=== PATIENT | male | born 1950 | race Caucasian/White ===

== ENCOUNTER 2024-08-06 06:01 | Day surgery (SDC) | payer MEDICARE, OTHER, SELFPAY ==
[2024-08-04 10:36] VITALS: BMI 22.3
[2024-08-06] VITALS (17 sets, daily range): BP systolic 110–145; BP diastolic 73–105; BMI 22.1
[2024-08-06 06:46] LABS: Glucose - Point of Care 97 mg/dl (70-99)
[2024-08-06 09:19] LABS: ACT-LR - POC 331 Seconds (116-155)
[2024-08-06 09:56] LABS: ACT-LR - POC 308 Seconds (116-155)
[2024-08-06 10:20] LABS: ACT-LR - POC 153 Seconds (116-155)
--- NOTE | 2024-08-06 10:55 | ITS.CL.ABL ---
Energy Technician - Ablation
Ablation
Procedure Report:
Primary Physician: Albaro Guerra MD
Primary Assistant Public Defender: Deon Juarez MD
Procedure Date: 08/06/2024
Procedure
Electrophysiology Study with SVT ablation
Left atrial recording / pacing
IV drug for arrhythmia induction
Patient History
Patient is a pleasant 74-year-old male with a past medical history significant for CVA, prostate cancer, nonadherence to medications, hypertension, esophageal cancer status postresection, alcohol use disorder, and paroxysmal symptomatic SVT.
Patient noted with evidence of SVT on ECG as well as event monitor with variable cycle length between 120 and 150 bpm. Intermittently, SVT is narrow complex likely short RP tachycardia other times it is faster with right bundle branch aberrancy and
unclear RP relationship. Patient tolerating beta-sarina with breakthrough symptomatic SVT.
Method
After informed consent was obtained, the patient was brought to the EP lab in a post-absorptive, non-sedated state. A peripheral IV was in place. Continuous electrocardiography, blood pressure and pulse oximetry monitoring was initiated and
cardioversion / defibrillator electrodes were positioned on the chest in an AP orientation. A 'time-out' was called. Conscious sedation was administered with the assistance of the anesthesia services, and local anesthesia was given at the femoral
vein access sites.
Using modified Seldinger technique, vascular access was achieved and sheaths were placed. Multipolar catheters were advanced to the coronary sinus, His bundle recording position, right ventricle, and high right atrium. Following the determination
of baseline conduction intervals, comprehensive EP study was performed. Pacing and recording from the RA, RV, HBE, and CS / LA was performed.
For arrhythmia details, see below.
Fluoroscopy time:
15.3 min; 41.21 mGy; DAP 4.4
Total RF time:
3 min 52s
Estimated Blood Loss
5 mL
Complications
None
At the end of the procedure, all catheters and sheaths were removed and hemostasis was assured with figure of 8 sutures and manual pressure. Protamine used for reversal. The patient was returned to the recovery area in stable condition.
Access Sites:
Left Femoral Vein: 2 sheaths (7 Fr, 6 Fr)
Right Femoral Vein: 2 sheaths (9 Fr upsized to 11.5 Fr, 6 Fr)
Baseline Intervals:
DE: 189 ms
AH: 74 ms
HV: 54 ms
QRS: 150 ms
QT: 417 ms
QTc: 487 ms
A-A: 735 ms
R-R: 735 ms
Post-Procedure Intervals:
DE: 120 ms
AH: 63 ms
HV: 54 ms
QRS: 148 ms
QT: 449 ms
QTc: 518 ms
A-A: 755 ms
R-R: 755 ms
AV Conduction:
- AVWB at 370 msec; unchanged pre/post
- VAWB at 360 msec; unchanged pre/post
Refractory Periods
- AERP 600/310 ms (600/240 ms on Isuprel)
Procedure Synopsis:
The patient entered the room in sinus rhythm. Following induction of anesthesia, access was obtained as noted above. Catheters were placed in the RV apex, HIS position, and coronary sinus. Baseline measurements were taken in sinus rhythm. Next,
thresholds were performed demonstrating adequate capture. Next, AV/VA Wenckebach was performed demonstrating appropriate AV/VA conduction. Para-Hisian pacing demonstrated a iván response. Atrial extrastimuli was then performed with drivetrain of
600 reducing S2 by tens. Patient was noted to have an AH jump during atrial extrastimuli. At 600/330 ms, clinical arrhythmia/SVT was induced at 620 ms. Arrhythmia was a on V phenomenon with VA time less than 30. With ventricular overdrive
pacing, patient demonstrated a VAV response. PPI minus TCL was noted to be greater than 115 ms and SA�VA was greater than 85 ms. 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 Short 9 [place] sheath was exchanged for an
11.5 [place] steerable sheath. Heparin was given for ACT goal 300�400. HD grid catheter was advanced in the right atrium and right atrial mapping was performed in sinus rhythm. During this time, patient was noted to experience similar clinical
arrhythmia/SVT now at 400 ms with same pacing maneuvers demonstrating typical slow fast AVNRT. Arrhythmia was terminated and mapping continued in sinus rhythm. Detail points were made demonstrating area of slow pathway region, anatomy, and HIS
bundle/cloud signals. Following thorough electroanatomic mapping, HD grid catheter was removed and TactiCath SE DF catheter was advanced in the right atrium. Irrigation was placed in a low flow state. Ablation catheter once more mapped regions of
the HIS and areas were marked demonstrating HIS signal. Ablation was performed in areas where HIS signal was not present on ablation catheter EGM, A:V ratio 1:3-1:10 in the region marked as slow pathway by electroanatomic mapping. Careful
monitoring of AV synchrony, junctional rhythm, impedance, temperature, power during ablation. Patient maintained AV synchrony during the entirety of ablation. During ablation, stable junctional beats were noted without loss of AV conduction.
Following completion of ablation lesions, reinduction was attempted. With atrial extrastimuli, patient was noted to no longer possess an AH jump. Additionally, no SVT/clinical arrhythmia was induced during these attempts. Isoproterenol drug
infusion was then performed and measurements/electrophysiology study was once more performed with arrhythmia induction attempt. No arrhythmia was induced during drug infusion or afterwards. Baseline measurements were once more performed
demonstrating no change in AV conduction. Catheters and sheaths were removed and hemostasis assured as noted above.
Recommendations
- Admit to telemetry
- Bedrest with straight-leg precautions 4 hours
- Continue home medications as indicated
- Follow-up in office with Dr Juarez as scheduled
Samir Johnson DO
Clinical Cardiac Electrophysiology
cc: Albaro Guerra MD; Deon Juarez MD
[2024-08-06 11:29] LABS: Glucose - Point of Care 133 mg/dl (70-99)
--- NOTE | 2024-08-06 13:05 | CM ---
Reviewed chart. Met with Mr. Marin to review discharge plans. He states prior to admission he resides with his spouse in a two story home with two steps to enter. He states he has thirteen steps to get to bedroom. He states his full bathroom is on
the first floor. He states prior to admission he was independent with ambulation and adls. He states he has a CPAP Machine at home that he is not currently using it. He states he has a prescription plan and uses [facility]. He states his spouse
will be going away for the weekend and he maybe going to stay with his daughter in [place] while she is away. The discharge plan is to return home with his spouse when medically stable.
--- NOTE | 2024-08-06 15:50 | PTCARENOTE ---
Pt received post procedure at 1215. Bilateral groin site dressings dry and intact. Denies any pain or discomfort. Room air sat 98. Assisted oob to the bathroom when bedrest completed. Gait steady with a walker. Walked in the hallway with nurse. No
c/o offered.
[2024-08-06] MEDS: TOPROL XL 25 MG PO (19:34)
--- NOTE | 2024-08-07 01:48 | PTCARENOTE ---
Pt received start of shift, HR SR w/ BBB. B/l groin sites CDI, soft - no hematomas. Pt ambulated with standby assist around floor once. Pt tolerated well, groin sites remain unchanged. Pt w/ episode of intermittent vomiting w/ small output each time
for 10-15mins. Pt denies nausea and states this sometimes happens if he eats too much after his esophageal CA/resection and that walking helps. Pt walked around unit again - pt tolerated. Educated pt on aspiration pneumonia and possible risks. Pt
states understanding. Informed to notify RN if any recurrence of vomiting, call vaughn within reach.
[2024-08-07 02:50] VITALS: BP 137/84
[2024-08-07 03:12] LABS: Hematocrit 37.2 % (39.0-52.0); Mean Corp Hgb Conc. 34.9 g/dL (33.0-37.0); Mean Corpuscular Hgb 33.5 pg (27.0-31.0); Mean Corpuscular Volume 95.9 fL (80.0-94.0); Mean Platelet Volume 8.9 fL (7.4-10.4); Platelet Count 144 10^3/uL (130-400); Red Blood Cell Count 3.88 10^6/uL (4.70-6.10); Red Cell Dist. Width 15.5 % (11.5-14.5); White Blood Cell Count 3.7 10^3/uL (4.8-10.8)
[2024-08-07 03:17] VITALS: BMI 22.4
[2024-08-07 03:34] LABS: Blood Urea Nitrogen 19 mg/dl (9-20); Calcium 9.3 mg/dl (8.4-10.2); Carbon Dioxide 23 mmol/L (22-30); Chloride 105 mmol/L (98-107); Estimated Creatinine Clearance 83 ml/min; Glucose 115 mg/dl (70-99); Magnesium 1.9 mg/dl (1.6-2.3); Potassium 4.2 mmol/L (3.5-5.1); Sodium 141 mmol/L (135-145); eGFR > 60.00
[2024-08-07] MEDS: MAALOX 30 ML PO (05:39)
[2024-08-07] MEDS: TUMS EX (EXTRA STRENGTH) CHEWABLE TABLET 300 MG PO (06:07)
--- NOTE | 2024-08-07 06:13 | PTCARENOTE ---
Pt c/o indigestion. PRN Maalox administered. Approximately 10 minutes later, pt w/ light emesis and wet cough. Pt requesting tums, DEVONTE [place] notified. Tums administered to pt.
[2024-08-07 07:00] VITALS: BP 127/82
--- NOTE | 2024-08-07 07:27 | W.PN.CARDCBS ---
Addendum entered and electronically signed by Denis Story MD 08/07/24 09:50:
patient seen and examined
agree with STUDENT ACCOUNTS MANAGER note and assessment
agree with STUDENT ACCOUNTS MANAGER plan
exam:
aao x 3
non focal neurologically
exam as per STUDENT ACCOUNTS MANAGER note
tele SR
Impression:
SVT
post SVT ablation 08/06/24
CVA 03/31/2020, right hemispheric, with residual deficits.
Obstructive sleep apnea, noncompliant with device.
Borderline diabetes.
Daily alcohol.
Esophageal cancer 2017 status post resection, chemo and radiation.
Prostate cancer less than five years status post radiation.
Plan:
post ablation feels well
groins stable
tele SR RBBB
continue metoprolol
Activity restrictions reviewed
f/u Dr. Juarez in 3 mo
stable for d/c home
Original Note:
Today's Communication / Plan
-
stable for d/c home
Impression / Plan
-
PCP: Albaro Guerra MD
CDY: Luca Juarez MD
Impression:
SVT
post SVT ablation 08/06/24
CVA 03/31/2020, right hemispheric, with residual deficits.
Obstructive sleep apnea, noncompliant with device.
Borderline diabetes.
Daily alcohol.
Esophageal cancer 2017 status post resection, chemo and radiation.
Prostate cancer less than five years status post radiation.
Plan:
post ablation feels well
groins stable
tele SR RBBB
continue metoprolol
Activity restrictions reviewed
f/u Dr. Juarez in 3 mo
stable for d/c home
Progress Note - Help Desk Representative
Subjective
Date of Service: August 07, 2024
denies cp, sob
Objective
Labs:
08/07/24 02:56
08/07/24 02:56
Labs
Hgb 13.0 g/dL (13.0-18.0) 08/07/24 02:56
Hct 37.2 % (39.0-52.0) L 08/07/24 02:56
Plt Count 144 10^3/uL (130-400) D 08/07/24 02:56
Sodium 141 mmol/L (135-145) 08/07/24 02:56
Potassium 4.2 mmol/L (3.5-5.1) 08/07/24 02:56
BUN 19 mg/dl (9-20) 08/07/24 02:56
Creatinine 0.7 mg/dL (0.7-1.3) 08/07/24 02:56
Glucose 115 mg/dl (70-99) H 08/07/24 02:56
Vital Signs and I&O:
Vital Signs
Temp Pulse Resp BP Pulse Ox
97.9 F 66 16 137/84 96
08/07/24 02:39 08/07/24 07:00 08/07/24 02:39 08/07/24 02:50 08/07/24 02:39
Vital Signs
Temp Pulse Resp BP Pulse Ox
97.9 F 66 16 137/84 96
08/07/24 02:39 08/07/24 07:00 08/07/24 02:39 08/07/24 02:50 08/07/24 02:39
Intake & Output
08/05/24 08/06/24 08/07/24 08/08/24
06:59 06:59 06:59 06:59
Intake Total 2710 / 2710
Output Total 450 / 450
Balance 2260 / 2260
Physical Exam
Physical Exam
NAD< AOX3
S1, S2, RRR
CTAB, non labored, no wheeze
SNTND bsx4
b/l jeannette c/d/i no HT, soft
[2024-08-07 08:06] VITALS: BP 127/82
[2024-08-07] MEDS: TOPROL XL 25 MG PO (08:15)
[2024-08-07 10:47] VITALS: BP 104/74
[2024-08-07 10:48] VITALS: BP 112/70
--- NOTE | 2024-08-07 13:15 | W.DS.TRANS ---
DC Summary - Residential Plumber
-
Discharge Instructions:
Discharge Diagnosis/Procedures SVT post ablation
Diet Low Cholesterol
Driving Restrictions No driving for 24 hours
Instructions:
Stand-Alone Forms: DC Instructions- Cath/EP Lab
Changes to Home Medications: No
Discharge Medications:
DC Medications w/original date entered in [employer]
Fish Oil 1 cap PO TID 07/30/24
Probiotic 1 cap PO DAILY 07/30/24
coenzyme Q10 100 mg capsule 100 mg PO BID 07/30/24
metoprolol succinate 25 mg tablet,extended release 24 hr 25 mg PO BID 07/30/24
multivitamin 1 tab PO TID 07/30/24
Home Medication Changes
Pending Results: No
--- NOTE | 2024-08-07 14:18 | PTCARENOTE ---
Rec'd pt at change of shift. Pt AAAO*3, in NSR, with VSS. Patient denied any complaints of pain. Rec'd order for discharge. Rn reviewed discharge instructions with patient and patient verbalized understanding. TELE monitor and INT removed. Pt
left room with belongings and escorted down to lobby via wheelchair by staff. Pt driven home by and ambulated safely into car.
== END 2024-08-07 14:41 | disposition home or self-care (01) ==
LOC: CATH 06:01
PROVIDERS: Nurse Practitioner Adult Health; ATTENDING PHYSICIAN Internal Medicine Cardiovascular Disease; OTHER PHYSICIAN Internal Medicine Interventional Cardiology
DX: I47.10 Supraventricular tachycardia, unspecified (principal); I45.2 Bifascicular block; Z86.73 Personal history of transient ischemic attack (TIA), and cerebral infarction without residual deficits; I10 Essential (primary) hypertension; G47.33 Obstructive sleep apnea (adult) (pediatric); R73.03 Prediabetes; Z85.46 Personal history of malignant neoplasm of prostate; Z85.01 Personal history of malignant neoplasm of esophagus
CPT/HCPCS: C1732; C1730; C1894; C1766; C2630; C1892; 80048; 82962; 83735; 85027; 85347; 93005; 93623; 93653

== ENCOUNTER → 2025-02-11 10:05 | Outpatient (REF) | payer MEDICARE, OTHER, SELFPAY | LOC: RCS 10:05 | PROVIDERS: ATTENDING PHYSICIAN Physician Assistant; FAMILY PHYSICIAN Internal Medicine | DX: I47.10 Supraventricular tachycardia, unspecified (principal); I10 Essential (primary) hypertension; R01.1 Cardiac murmur, unspecified | CPT/HCPCS: 93306 ==

== ENCOUNTER 2025-07-31 08:37 | Day surgery (SDC) | payer MEDICARE, OTHER, SELFPAY ==
[2025-07-31] VITALS (20 sets, daily range): BP systolic 106–132; BP diastolic 72–91; BMI 21.8
--- NOTE | 2025-07-31 13:51 | ITS.CL.ABL ---
Cooker Syrup - Ablation
Ablation
Procedure Report:
Primary Physician: Dr. Albaro Guerra
Primary Nuclear Waste Process Operator: Dr. Deon Juarez
Procedure Date: 07/31/2025
Procedure
Electrophysiology Study
Left atrial recording / pacing
IV drug for arrhythmia induction
Patient History
Patient is a pleasant 75-year-old male with a past medical history significant for alcohol use disorder, hypertension, CVA in 2019, esophageal cancer with esophagectomy and gastric pull-through with tracheoesophageal fistula, prostate cancer,
valvular heart disease, and symptomatic paroxysmal SVT.
Method
After informed consent was obtained, the patient was brought to the EP lab in a post-absorptive, non-sedated state. A peripheral IV was in place. Continuous electrocardiography, blood pressure and pulse oximetry monitoring was initiated and
cardioversion / defibrillator electrodes were positioned on the chest in an AP orientation. A 'time-out' was called. General anesthesia was administered with the assistance of the anesthesia services (this is due to patient's esophageal cancer
history), and local anesthesia was given at the femoral vein access sites.
Using modified Seldinger technique, vascular access was achieved and sheaths were placed. Ultrasound used for access images recorded and saved. Multipolar catheters were advanced to the coronary sinus, His bundle recording position, right
ventricle, and high right atrium. Following the determination of baseline conduction intervals, comprehensive EP study was performed. Pacing and recording from the RA, RV, HBE, and CS / LA was performed.
For arrhythmia details, see below.
Fluoroscopy time:
4.9 min; 13.15 mGy; DAP 1.67
Estimated Blood Loss
5 mL
Complications
None
At the end of the procedure, all catheters and sheaths were removed and hemostasis was assured with [id number] suture for each groin site. The patient was returned to the recovery area in stable condition.
Access Sites:
Left Femoral Vein: 3 sheaths (7 Fr, 6 Fr, 6 Fr)
Right Femoral Vein: 2 sheaths (8 Fr, 6 Fr)
Baseline Intervals:
Rhythm: Sinus rhythm
MO: 156 ms
AH: 78 ms
HV: 60 ms
QRS: 156 ms
QT: 412 ms
QTc: 412 ms
Post-Procedure Intervals:
MO: 174 ms
AH: 79 ms
HV: 57 ms
QRS: 160 ms
QT: 468 ms
QTc: 473 ms
A-A: 977 ms
R-R: 977 ms
AV Conduction:
- AVWB at 350 msec
- VAWB at 380 msec
Refractory Periods
- AV Node ERP: 600/290 ms
- AERP: 600/290 ms
Procedure Synopsis:
The patient entered the room in sinus rhythm. Following access as noted above, catheters were placed in the RV apical, HIS, CS, HRA positions. Threshold testing was performed. Next, VA Wenckebach was performed. Next AV Wenckebach was performed.
Para-Hisian pacing was unsuccessful due to continued atrial capture and RV surface capture despite multiple attempts and catheter repositioning. However, no evidence of extra iván physiology. Single atrial extra stimuli was then performed from
the HRA and CS positions. No AH jump was noted during testing. No arrhythmias were induced. Isoproterenol was then infused. Repeat testing was performed. No arrhythmias were induced. No evidence of accessory pathway or AH jump. Isoproterenol
was increased. Additional testing again performed however no arrhythmias were induced or evidence of accessory pathway or AH jump. Burst pacing performed. Again, no arrhythmias were induced. Following isoproterenol washout, EP study once more
performed however again, no arrhythmias were induced. Catheters were removed from the body and hemostasis was achieved as noted above. Baseline measurements were much more performed and consistent with preprocedure values.
Recommendations
- Admit to telemetry, will monitor overnight
- Bedrest with straight-leg precautions 4 hours
� Discontinue metoprolol, start diltiazem 180 mg daily
- Continue home medications as indicated
- Follow-up in office as scheduled
Samir Johnson DO, FACC, FHRS
Clinical Cardiac Electrophysiology
cc: Dr. Albaro Guerra; Dr. Deon Juarez
--- NOTE | 2025-07-31 15:57 | CM ---
spoke to pt in room, he is prev indep, lives with his davie 2 story home with 1 step to enter. he denies any dc planning needs or dme's. plan is for dc to home when medically stable.
--- NOTE | 2025-07-31 18:20 | PTCARENOTE ---
Received patient from PACU at 1515 after attempted SVT ablation. Bilateral groin dressings are dry and intact, DP pulses are weak, confirmed with doppler. Patient maintained flat bedrest x 4 hours and is now sitting up eating dinner. Dr. Mckenzie in
to see the patient. Call vaughn in reach, will continue to monitor.
[2025-07-31] MEDS: CARDIZEM CD 180 MG PO (20:10)
--- NOTE | 2025-07-31 21:03 | PTCARENOTE ---
assumed care of patient at the change of shift. AAOx3. CHILKAT. denies any pain. b/l groin sites intact. doppler pulses. SR with a BBB on tele 80s. increased rates OOB. ambulated to the bathroom. weakness noted. patient states increased weakness
recently per patient. ambulated well with the walker. denies any lightheadedness/dizziness. reviewed plan of care with the patient and verbalized understanding. call vaughn within reach. makes needs known.
[2025-08-01 01:46] VITALS: BP 118/95
--- NOTE | 2025-08-01 01:50 | PTCARENOTE ---
at approx 0144 patient had a run of SVT in the 140s. patient was sleeping in bed. denies any symptoms at that time. back into a SR 70s. bp 118/95.
[2025-08-01 04:25] VITALS: BP 121/84
[2025-08-01 05:14] LABS: Hematocrit 34.4 % (39.0-52.0); Hemoglobin 12.0 g/dL (13.0-18.0); Mean Corp Hgb Conc. 34.9 g/dL (33.0-37.0); Mean Corpuscular Volume 93.0 fL (80.0-94.0); Platelet Count 191 10^3/uL (130-400); Red Cell Dist. Width 14.6 % (11.5-14.5)
[2025-08-01 05:37] LABS: Blood Urea Nitrogen 17 mg/dl (9-20); Calcium 8.8 mg/dl (8.4-10.2); Carbon Dioxide 26 mmol/L (22-30); Chloride 106 mmol/L (98-107); Estimated Creatinine Clearance 93 ml/min; Glucose 93 mg/dl (70-99); Magnesium 1.9 mg/dl (1.6-2.3); Potassium 4.0 mmol/L (3.5-5.1); Sodium 136 mmol/L (135-145); eGFR > 60.00
[2025-08-01 06:49] VITALS: BP 113/78
[2025-08-01 06:51] VITALS: BMI 21.5
--- NOTE | 2025-08-01 08:20 | W.PN.CARDCBS ---
Addendum entered and electronically signed by Kar Gamez DO 08/01/25 09:16:
I saw and examined the patient.
The Ankle Patch Molder's note was reviewed and I agree with the note.
Comment:
Stable for d/c
Increase Cardizem to 240 mg daily after review with EP
Outpt follow up arranged.
Original Note:
Today's Communication / Plan
-
-increase Cardizem to 240 mg daily
-ok for discharge
Impression / Plan
-
PCP: Albaro Guerra MD
CDY: Luca Juarez MD
Impression:
recurrent SVT s/p EP study 07/31/2025- noninducible
post SVT ablation 08/06/24
CVA 03/31/2020, right hemispheric, with residual deficits.
Obstructive sleep apnea, noncompliant with device.
Borderline diabetes.
Daily alcohol.
Esophageal cancer 2017 status post resection, chemo and radiation.
Prostate cancer less than five years status post radiation.
Plan:
post EP study, non inducible for SVT
AV iván sarina changed from Toprol to Diltiazem 180 mg daily.
Pt had 3 min SVT overnight HR 150s.
Will increase Diltiazem to 240 mg daily-eprescribed to his [facility] and called and left msg that we increased dose and 240 mg dose should be dispensed
groins stable
tele SR RBBB
Activity restrictions reviewed
f/u Dr. Juarez in 3 mo
stable for d/c home
Progress Note - Raw Stock Drier Tender
Subjective
Date of Service: August 01, 2025
-had 3 min SVT overnight, HRs 150s
-no groin discomfort or drainage
Objective
Labs:
08/01/25 04:26
08/01/25 04:26
Labs
Hgb 12.0 g/dL (13.0-18.0) L 08/01/25 04:26
Hct 34.4 % (39.0-52.0) L 08/01/25 04:26
Plt Count 191 10^3/uL (130-400) 08/01/25 04:26
Sodium 136 mmol/L (135-145) 08/01/25 04:26
Potassium 4.0 mmol/L (3.5-5.1) 08/01/25 04:26
BUN 17 mg/dl (9-20) 08/01/25 04:26
Creatinine 0.6 mg/dL (0.7-1.3) L 08/01/25 04:26
Glucose 93 mg/dl (70-99) 08/01/25 04:26
Vital Signs and I&O:
Vital Signs
Temp Pulse Resp BP Pulse Ox
98.6 F 76 18 121/84 97
08/01/25 06:48 08/01/25 04:30 08/01/25 06:48 08/01/25 04:25 08/01/25 06:48
Vital Signs
Temp Pulse Resp BP Pulse Ox
98.6 F 76 18 121/84 97
08/01/25 06:48 08/01/25 04:30 08/01/25 06:48 08/01/25 04:25 08/01/25 06:48
Intake & Output
07/30/25 07/31/25 08/01/25 08/02/25
06:59 06:59 06:59 06:59
Intake Total 250 / 250
Output Total 600 / 600
Balance -350 / -350
Physical Exam
Physical Exam
GEN: No distress, awake, Ox3
HEENT: supple, anicteric, mmm
LUNGS: CTA, no wheezes/rales
CV: Reg, S1/S2, 2/6 syst murmur
ABD: soft, BS+, NT/ND
EXT: No edema. B/L groin sites without hematoma or bruit
NEURO: Gross non-focal
SKIN: venous stasis color changes LEs
[2025-08-01] MEDS: CARDIZEM CD PO (09:02)
--- NOTE | 2025-08-01 10:42 | PTCARENOTE ---
received patient this am ambulating in room with walker, rose marie. well. monitor shows NSR, VSS. bilat. groins intact, no hematoma present. distal pulses by Doppler. patient for discharge to home today. TT Natalie STEWART due to patient being on multivitamin
TID and if patient should continue fish oil., will continue multivitamin as patient takes and patient can resume fish oil.
[2025-08-01 11:50] VITALS: BP 128/81
--- NOTE | 2025-08-01 12:56 | PTCARENOTE ---
D/C instructions given to patient, patient verbalizes understanding. lisinopril po qd not on D/C medications, TT Natalie STEWART and was put on patients D/C medications. telemetry D/C'd, INT D/C'd, educations packets given, personal belongings packed and
sent home with patient. D/C to home via wc accompanied by staff.
--- NOTE | 2025-08-03 07:08 | W.DS.TRANS ---
DC Summary - Senior Business Architect
-
Discharge Instructions:
Discharge Diagnosis/Procedures SVT, s/p EP study- non inducible for arrhythmia
Diet Low Sodium
Driving Restrictions No driving for 24 hours
Instructions:
Stand-Alone Forms: DC Instructions- Cath/EP Lab
Changes to Home Medications: Yes
Discharge Medications:
DC Medications w/original date entered in [employer]
Probiotic 1 cap PO DAILY Supplement 07/30/24
coenzyme Q10 100 mg capsule 100 mg PO BID Supplement 07/30/24
multivitamin 1 tab PO TID Supplement 07/30/24
diltiazem HCl 240 mg capsule,extended release 24 hr 240 mg PO DAILY take at 8 pm 30 days #30 caps 08/01/25
lisinopril 20 mg tablet 20 mg PO DAILY 30 days #30 tabs 08/01/25
omega-3 fatty acids-vitamin E 1,000 mg capsule 1 cap PO TID High Cholesterol 08/01/25
Home Medication Changes
stop metoprolol
start Diltiazem 240 mg daily (of note, pt was intitially going to be discharged on Diltiazem 180 mg daily. He had SVT overnight and dose was increased to 240 mg daily.
Pending Results: No
Total time spent discharging patient (in min): 30
== END 2025-08-01 13:05 | disposition home or self-care (01) ==
LOC: CATH 08:37
PROVIDERS: Nurse Practitioner Adult Health; ATTENDING PHYSICIAN Internal Medicine Cardiovascular Disease; FAMILY PHYSICIAN Internal Medicine; OTHER PHYSICIAN Internal Medicine Interventional Cardiology
DX: I47.10 Supraventricular tachycardia, unspecified (principal); I10 Essential (primary) hypertension; I35.0 Nonrheumatic aortic (valve) stenosis; I45.10 Unspecified right bundle-branch block; Z86.73 Personal history of transient ischemic attack (TIA), and cerebral infarction without residual deficits; Z85.01 Personal history of malignant neoplasm of esophagus; J86.0 Pyothorax with fistula; G47.33 Obstructive sleep apnea (adult) (pediatric); E78.5 Hyperlipidemia, unspecified; Z85.46 Personal history of malignant neoplasm of prostate; Z92.3 Personal history of irradiation; R73.03 Prediabetes; Z79.899 Other long term (current) drug therapy; Z91.199 Patient's noncompliance with other medical treatment and regimen due to unspecified reason
CPT/HCPCS: C1730 ×2; C1894; 80048; 83735; 85027; 93005; 93653